=== PATIENT | male | born 1990 | race Caucasian/White ===

== ENCOUNTER 2017-08-26 13:24 | Emergency (ER) | payer SELFPAY ==
[~2017-08-26] VITALS: Ht 167.6 cm; Wt 64.0 kg
[2017-08-26 13:25] VITALS: BP 138/82; PULSE 86; RESP 16; TEMP 98.9; O2SAT 98
[2017-08-26 17:46] VITALS: BP 126/74; PULSE 71; RESP 20; O2SAT 99
[2017-08-26] MEDS ORDERED: PENI500T PO (18:31)
--- NOTE | 2017-08-26 18:34 | PD ---
HPI Chief Complaint: Cold / Flu Symptoms Time Seen by Provider: 18:21 Travel History International Travel<30 days: No Contact w/Intl Traveler<30days: No Traveled to known affect area: No History of Present Illness HPI 27-year-old male here for evaluation of sore throat and cough for approximately 30 days. Patient reports a nonproductive cough, sore throat, generalized fatigue over the last month. He reports symptoms wax and wane. He denies fever or chills. His main complaint at today's visit is sore throat. He denies difficulty swallowing. Symptoms severity is mild. Aggravating factors include swallowing. No alleviating factors PFSH Past Medical History Medical History: Denies Significant Hx Diminished Hearing: No Psychiatric: Yes (ptsd) Tetanus Vaccination: < 5 Years Past Surgical History Surgical History: No Previous Surgery Social History Alcohol Use: No Tobacco Use: Yes Substance Use: Yes (pot) Allergies-Medications (Allergen,Severity, Reaction): Coded Allergies: No Known Allergies (Unverified , 08/26/17) Reported Meds & Prescriptions Reported Meds & Active Scripts Active Penicillin V Potassium 500 Mg Tab 500 Mg PO BID 10 Days Review of Systems Except as stated in HPI: all other systems reviewed are Neg General / Constitutional: No: Fever HENT: Positive: Sore Throat Respiratory: Positive: Cough Physical Exam Narrative GENERAL: Well-nourished, well-developed patient. SKIN: Focused skin assessment warm/dry. HEAD: Normocephalic. EYES: No scleral icterus. No injection or drainage. THROAT: Mild pharyngeal erythema with tonsillar hypertrophy. No exudate. Uvula is midline. NECK: Supple, trachea midline. No JVD or lymphadenopathy. No meningismus CARDIOVASCULAR: Regular rate and rhythm without murmurs, gallops, or rubs. RESPIRATORY: Breath sounds equal bilaterally. No accessory muscle use. GASTROINTESTINAL: Abdomen soft, non-tender, nondistended. Data Data Last Documented VS Vital Signs Date Time Temp Pulse Resp B/P (MAP) Pulse Ox O2 Delivery O2 Flow Rate FiO2 08/26/17 18:58 08/26/17 17:46 71 20 99 08/26/17 13:25 98.9 Orders Orders Ed Discharge Order (08/26/17 18:26) MDM Medical Decision Making Medical Screen Exam Complete: Yes Emergency Medical Condition: Yes Differential Diagnosis VIRAL PHARYNGITIS, STREP PHARYNGITIS, URI Narrative Course 27-year-old male here for evaluation of sore throat and cough 30 days. He is nontoxic appearing. He has pharyngeal erythema and tonsillar swelling. will be treated for pharyngitis Diagnosis Primary Impression: Pharyngitis Qualified Codes: J02.9 - Acute pharyngitis, unspecified Referrals: [facility] Departure Forms: Tests/Procedures, Work Release Enter return to work date: Aug 29, 2017 Scripts Penicillin V Potassium (Penicillin V Potassium) 500 Mg Tab 500 MG PO BID for Infection for 10 Days, #20 TAB 0 Refills Prov: Desiree Rodriguez 08/26/17 Disposition: DISCHARGE HOME Condition: Stable Desiree Rodriguez Aug 26, 2017 18:34
== END 2017-08-26 19:05 | disposition home or self-care (01) ==
LOC: NEPD 13:24
DX: J02.9 Acute pharyngitis, unspecified (principal); R05 Cough; Z72.0 Tobacco use
CPT/HCPCS: 99283

== ENCOUNTER 2017-08-30 16:36 | Emergency (ER) | payer SELFPAY ==
[~2017-08-30] VITALS: Ht 172.7 cm; Wt 65.0 kg
[~2017-08-30 16:36] MED LIST: PENI500T PO
[2017-08-30 16:38] VITALS: BP 127/77; PULSE 76; RESP 12; TEMP 97.9; O2SAT 98
--- NOTE | 2017-08-30 18:41 | PD ---
HPI Chief Complaint: Medical Clearance Time Seen by Provider: 18:25 Travel History International Travel<30 days: No Contact w/Intl Traveler<30days: No Traveled to known affect area: No History of Present Illness HPI 27-year-old male here for evaluation of diarrhea. Patient is requesting a work release form. He was seen several days ago in the emergency department and treated for pharyngitis anabiotic's. Patient reports he has been taking 4 doses rather than to as prescribed and attempt to shorten the duration of the pharyngitis. He began to develop diarrhea shortly after doubling the dose of antibiotics. He denies fever, chills, abdominal pain. He is well-appearing. He is eating Beltre's in the bed. [facility] Past Medical History Medical History: Denies Significant Hx Diminished Hearing: No Psychiatric: Yes (ptsd) Tetanus Vaccination: < 5 Years Past Surgical History Surgical History: No Previous Surgery Social History Alcohol Use: No Tobacco Use: Yes Substance Use: Yes (pot) Allergies-Medications (Allergen,Severity, Reaction): Coded Allergies: No Known Allergies (Unverified , 08/30/17) Reported Meds & Prescriptions Reported Meds & Active Scripts Active Penicillin V Potassium 500 Mg Tab 500 Mg PO BID 10 Days Review of Systems Except as stated in HPI: all other systems reviewed are Neg Gastrointestinal: Positive: Diarrhea Physical Exam Narrative GENERAL: Well-nourished, well-developed patient. SKIN: Focused skin assessment warm/dry. HEAD: Normocephalic. CARDIOVASCULAR: Regular rate and rhythm without murmurs, gallops, or rubs. RESPIRATORY: Breath sounds equal bilaterally. No accessory muscle use. GASTROINTESTINAL: Abdomen soft, non-tender, nondistended. MUSCULOSKELETAL: No cyanosis, or edema. Data Data Last Documented VS Vital Signs Date Time Temp Pulse Resp B/P (MAP) Pulse Ox O2 Delivery O2 Flow Rate FiO2 08/30/17 18:57 08/30/17 16:38 97.9 76 12 98 Orders Orders Ed Discharge Order (08/30/17 18:44) MDM Medical Decision Making Medical Screen Exam Complete: Yes Emergency Medical Condition: Yes Differential Diagnosis Viral illness, diarrhea, medical screening exam Narrative Course 27-year-old male here for evaluation of diarrhea. Patient is requesting a work release form. He was seen several days ago in the emergency department and treated for pharyngitis anabiotic's. Patient reports he has been taking 4 doses rather than to as prescribed and attempt to shorten the duration of the pharyngitis. He began to develop diarrhea shortly after doubling the dose of antibiotics. He denies fever, chills, abdominal pain. He is well-appearing. He is eating Beltre's in the bed. Patient was instructed to take the antibiotics as prescribed. Stay well hydrated. Follow-up with his primary doctor. Diagnosis Primary Impression: Diarrhea Qualified Codes: R19.7 - Diarrhea, unspecified Departure Forms: Tests/Procedures, Work Release Enter return to work date: Sep 01, 2017 Additional Instructions: Take the antibiotics as prescribed. Stay well hydrated by drinking plenty of fluids. Follow-up with the [facility]. Disposition: 01 DISCHARGE HOME Condition: Stable Desiree Rodriguez Aug 30, 2017 18:41
== END 2017-08-30 18:58 | disposition home or self-care (01) ==
LOC: NEPD 16:36
DX: R19.7 Diarrhea, unspecified (principal); J02.9 Acute pharyngitis, unspecified; F43.10 Post-traumatic stress disorder, unspecified; Z72.0 Tobacco use; Z88.0 Allergy status to penicillin
CPT/HCPCS: 99281

== ENCOUNTER 2018-04-14 14:42 | Emergency (ER) | payer SELFPAY ==
[2018-04-14 14:49] VITALS: BP 115/75; PULSE 72; RESP 18; TEMP 98.4; O2SAT 97
[2018-04-14] MEDS ORDERED: MELA1TAB18 PO (15:01)
--- NOTE | 2018-04-14 15:21 | PD ---
HPI Chief Complaint: Dizziness Time Seen by Provider: 15:10 Travel History International Travel<30 days: No Contact w/Intl Traveler<30days: No Traveled to known affect area: No History of Present Illness HPI Patient 27-year-old male presents emergency department for evaluation of nausea without vomiting fatigue generalized weakness and some mild dizziness which she describes as vertigo for the past few days. Patient states that he would just like something for the nausea and a work excuse to miss work today because he was at home feeling sick. He states currently he actually feels pretty well, denies any bilious or bloody emesis denies any bloody or melanotic stools, denies abdominal pain. He states it has been intermittent in the past usually relieved with marijuana which he smokes occasionally at home. No fevers no cough no congestion. States symptoms are mild, for the past few days, waxing and waning, associated signs symptoms as above PFSH Past Medical History ADD: Yes Diminished Hearing: No Psychiatric: Yes (ptsd) Past Surgical History Surgical History: No Previous Surgery Social History Alcohol Use: No Tobacco Use: Yes Substance Use: Yes (pot) Allergies-Medications (Allergen,Severity, Reaction): Coded Allergies: No Known Allergies (Verified Adverse Reaction, Unknown, 04/14/18) Reported Meds & Prescriptions Reported Meds & Active Scripts Active Zofran Odt (Ondansetron Odt) 4 Mg Tab 4 Mg SL Q6HR PRN Reported Melatonin 10 Mg-1 Mg Tab 10 Mg PO HS PRN Review of Systems Except as stated in HPI: all other systems reviewed are Neg Physical Exam Narrative GENERAL: Well-nourished, well-developed patient. Nontoxic and healthy- appearing. SKIN: Focused skin assessment warm/dry. HEAD: Normocephalic. EYES: No scleral icterus. No injection or drainage. NECK: Supple, trachea midline. No JVD or lymphadenopathy. CARDIOVASCULAR: Regular rate and rhythm without murmurs, gallops, or rubs. RESPIRATORY: Breath sounds equal bilaterally. No accessory muscle use. GASTROINTESTINAL: Abdomen soft, non-tender, nondistended. No rebound no percussive tenderness, normal active bowel sounds peer MUSCULOSKELETAL: No cyanosis, or edema. NEUROLOGIC: Cranial nerves II through XII grossly intact and nonfocal, 5 out of 5 strength in all 4 extremity's, ambulates with an even narrow-base gait peer BACK: Nontender without obvious deformity. No CVA tenderness. Data Data Last Documented VS Vital Signs Date Time Temp Pulse Resp B/P (MAP) Pulse Ox O2 Delivery O2 Flow Rate FiO2 04/14/18 14:58 98 Room Air 04/14/18 14:49 98.4 72 18 115/75 (88) Orders Orders Ondansetron Odt (Zofran Odt) (04/14/18 15:30) Ed Discharge Order (04/14/18 15:22) [facility] Medical Decision Making Medical Screen Exam Complete: Yes Emergency Medical Condition: Yes Differential Diagnosis Gastritis, gastroneuritis, dehydration unlikely, vertigo, presyncope unlikely, acute medical emergency unlikely peer Narrative Course Patient room to the emergency department, counseled on signs symptoms that should prompt return to the ER. He appears well and there is no indication further workup at this time. Discussed smoking cessation as well as marijuana cessation. He is stable for discharge, discussed follow-up with the [facility] for primary care physician peer Diagnosis Primary Impression: Dizziness Additional Impression: Nausea Patient Instructions: Acute Nausea and Vomiting (DC), General Instructions Additional Instructions: Drink plenty of fluids and follow up with your primary care physician. Cut back on your marijuana usage and stop smoking as it is very bad for you. Med/Other Pt SpecificInfo: Prescription(s) given Scripts Ondansetron Odt (Zofran Odt) 4 Mg Tab 4 MG SL Q6HR Y for Nausea/Vomiting, #30 TAB 0 Refills Prov: Elfego Myers MD 04/14/18 Disposition: 01 DISCHARGE HOME Condition: Stable Elfego Myers MD Apr 14, 2018 15:21
[2018-04-14] MEDS ORDERED: ZOFR4TAB3 SL (15:22)
[2018-04-14] MEDS ORDERED: ONDANSETRON ODT 4 MG TAB PO ONE (15:30)
== END 2018-04-14 15:35 | disposition home or self-care (01) ==
LOC: PHED 14:42
DX: R42 Dizziness and giddiness (principal); R11.0 Nausea; F12.90 Cannabis use, unspecified, uncomplicated; F98.8 Other specified behavioral and emotional disorders with onset usually occurring in childhood and adolescence; F43.10 Post-traumatic stress disorder, unspecified; F17.200 Nicotine dependence, unspecified, uncomplicated
CPT/HCPCS: 99283